=== PATIENT | female | born 1940 | race Caucasian/White ===

== ENCOUNTER 2016-10-16 17:34 | Emergency (ER) | payer OTHER ==
--- NOTE | ~2016-10-16 | CR72 ---
[facility] RADIOLOGY TEXT RESULTS PATIENT: CHILANGO RAMIREZ LOCATION: [facility] : 38 UNIT #: [id number] AGE: [address]: Dali Helms MD SEX: F ORDER DR: [id number] [facility] [address] [place], [place] [address] [id number] E MR#: [id number] #: [id number] NAME: CHILANGO RAMIREZ. : 1940 SEX: F STUDY DATE/TIME: 10/16/2016 20:49 UNIT: [facility] ROOM: STUDY DESCRIPTION: CR Chest Single View Portable Attending Physician: Dali Helms M.D. Ordering Physician: Dali Helms M.D. Primary Care Physician: Aden Sykes M.D. MEDICAL IMAGING REPORT This report is preliminary unless electronic signature is present EXAM Portable chest HISTORY Mid chest pain today. No injury. FINDINGS Mild hyperinflation of both lungs. Cardiac size and pulmonary vascularity are normal. Probable minimal linear atelectasis or scarring in the lung bases. No airspace consolidation or pleural effusion. 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 IMPRESSION No acute findings and no active disease. Mild atelectasis or scarring in both lung bases. Dictated by... Damon Lea M.D. THIS IS AN ELECTRONICALLY VERIFIED REPORT Damon Lea M.D. at 10/19/2016 10:19 AM DFL/suresh TD: 10/17/2016 02:54 JOB #: [id number] [facility] RADIOLOGY TEXT RESULTS PATIENT: CHILANGO RAMIREZ LOCATION: [facility] : 39 UNIT #: [id number] AGE: [address]: Dali Helms MD SEX: F ORDER DR: Page 1 of 1 COPY
[~2016-10-16 17:34] MED LIST: ALBUTEROL MININEB NEB; ALPRAZOLAM PO; ALPRAZOLAM0.5 MG PO; CELEXA20 MG PO; DONEPEZIL HCL10 MG PO; EYE VITAMIN; LEVAQUIN PO; LISINOPRIL PO; LISINOPRIL-HCTZ1 T14 PO; LISINOPRIL20 MG PO; NAMENDA10 MG PO; SPIRIVA18 MCG INH; VICODIN PO; XANAX0.5 MG PO; [UNRECOGNIZED DRUG - REMARK]
== END 2016-10-16 22:17 | disposition home or self-care (01) ==
LOC: CED 17:34
DX: S20.219A Contusion of unspecified front wall of thorax, initial encounter (principal); W19.XXXA Unspecified fall, initial encounter; Y92.009 Unspecified place in unspecified non-institutional (private) residence as the place of occurrence of the external cause
CPT/HCPCS: 71010; 71120; 99283